=== PATIENT | male | born 1950 | race Caucasian/White ===

== ENCOUNTER 2025-02-02 08:03 | Outpatient (CLI) | payer OTHER ==
--- NOTE | 2025-02-02 09:35 | RADIOLOGY REPORT ---
EXAM: DI KNEE 3 VWS, DI KNEE 3 VWS CLINICAL INDICATION: OSTEOARTHRITIS TECHNIQUE: DI KNEE 3 VWS, DI KNEE 3 VWS Comparison: DI KNEE 3 VWS on DOS: 02/02/25 FINDINGS/IMPRESSION: There is no evidence of acute fracture or dislocation. Moderate bilateral tricompartmental joint space narrowing with chondrocalcinosis. The alignment is anatomical. There is no radiopaque foreign body.
--- NOTE | 2025-02-02 09:35 | RADIOLOGY REPORT ---
EXAM: DI KNEE 3 VWS, DI KNEE 3 VWS CLINICAL INDICATION: OSTEOARTHRITIS TECHNIQUE: DI KNEE 3 VWS, DI KNEE 3 VWS Comparison: None FINDINGS/IMPRESSION: There is no evidence of acute fracture or dislocation. Moderate bilateral tricompartmental joint space narrowing with chondrocalcinosis. The alignment is anatomical. There is no radiopaque foreign body.
--- NOTE | 2025-02-02 09:36 | RADIOLOGY REPORT ---
EXAM: DI HIP,BI,CMPLT(AP PELVIS) CLINICAL INDICATION: OSTEOARTHRITIS TECHNIQUE: DI HIP,BI,CMPLT(AP PELVIS) Comparison: None FINDINGS/IMPRESSION: There is no evidence of acute fracture or dislocation. Bilateral total hip arthroplasties.
== END 2025-02-02 23:59 | disposition home or self-care (01) ==
LOC: RAD 08:03
PROVIDERS: ATTEND Chiropractor
DX: M17.0 Bilateral primary osteoarthritis of knee (principal); M19.90 Unspecified osteoarthritis, unspecified site; Z96.641 Presence of right artificial hip joint; Z96.642 Presence of left artificial hip joint; M11.262 Other chondrocalcinosis, left knee; M11.261 Other chondrocalcinosis, right knee
CPT/HCPCS: 73521; 73562